=== PATIENT | male | born 1970 | race Caucasian/White ===

== ENCOUNTER → 2019-03-08 | Outpatient (CLI) | payer OTHER ==
--- NOTE | 2019-03-09 08:42 | US ---
EXAMINATION TYPE: US kidneys/renal and bladder DATE OF EXAM: 03/08/2019 COMPARISON: NONE CLINICAL HISTORY: N18.9 RENAL INSUFF. EXAM MEASUREMENTS: Right Kidney: 11.0 x 6.2 x 5.2 cm Left Kidney: 11.6 x7.3 x 5.8 cm Post Void Residual Volume: 2.2 mL Right Kidney: No hydronephrosis or masses seen Left Kidney: No hydronephrosis or masses seen Bladder: wnl Bilateral Jets seen: yes, small jets were imaged Normal Post Void Residual: yes There is no evidence for hydronephrosis at this point in time. No nephrolithiasis is seen. No lianne s are identified. The urinary bladder is anechoic. Bilateral ureteral jets are seen. Bilateral mild cortical renal thinning. IMPRESSION: No hydronephrosis or nephrolithiasis. Mild bilateral cortical renal thinning suggests chronic medical renal disease.
== END | disposition home or self-care (01) ==
LOC: RADUSWWP 16:19
PROVIDERS: ATTEND Family Medicine
DX: N28.89 Other specified disorders of kidney and ureter (principal); Z91.041 Radiographic dye allergy status; Z88.8 Allergy status to other drugs, medicaments and biological substances
CPT/HCPCS: 76770